=== PATIENT | female | born 1975 ===

== ENCOUNTER 2018-12-04 14:26 | Emergency (ER) | payer SELFPAY ==
[2018-12-04 14:42] VITALS: PULSE 60; O2SAT 100
[2018-12-04 15:32] LABS: SQUAMOUS EPITHIAL 6 /hpf (0-5)
[2018-12-04 15:36] LABS: URINE BILIRUBIN NEGATIVE (NEGATIVE); URINE BLOOD 3+ (NEGATIVE); URINE CLARITY Hazy (Clear); URINE COLOR Yellow (YELLOW); URINE GLUCOSE (UA) NORMAL (Normal); URINE PROTEIN NEGATIVE (NEGATIVE); URINE UROBILINOGEN NORMAL mg/dL (0.2-1.0)
[2018-12-04 15:41] LABS: URINE LEUKOCYTE ESTERASE 1+ Leu/uL (Negative)
[2018-12-04 15:43] LABS: HCG,QUALITATIVE URINE NEGATIVE (NEGATIVE)
[2018-12-04] MEDS ORDERED: Sodium Chloride 0.9% 1,000 ML IV ONE (16:29)
--- NOTE | 2018-12-04 16:33 | C.PDOC ---
History Of Present Illness 43 y/o female c/o heavy vaginal bleeding today, used 5 pads and a tampon and passed some clots. pt reports last period was 20 days ago with just spotting and that periods have been irregular lately. pt last saw director of residence life more than a year ago. pt felt mildly dizzy, no cp or sob. no abdominal pain. pt denies any rough sexual intercouse or use of foreign objects in vagina that might cause bleeding. Time Seen by Provider: 12/04/18 15:16 Chief Complaint (Nursing): Female Genitourinary History Per: Process Laboratory Specialist (Mame pt rep) History/Exam Limitations: language barrier Onset/Duration Of Symptoms: Days (1) Current Symptoms Are (Timing): Still Present Severity: Moderate Quality Of Discomfort: Unable To Describe Associated Symptoms: denies: Nausea, Vomiting Past Medical History Reviewed: Historical Data, Nursing Documentation, Vital Signs Vital Signs: Last Vital Signs Temp 98 F 12/04/18 14:39 Pulse 60 12/04/18 14:39 Resp 20 12/04/18 14:39 BP 163/100 H 12/04/18 14:39 Pulse Ox 100 12/04/18 14:39 Primary Care Provider: Marizol Falk - Medical History PMH: No Chronic Diseases Family History: States: Unknown Family Hx - Social History Hx Alcohol Use: No Hx Substance Use: No - Immunization History Hx Tetanus Toxoid Vaccination: No Hx Influenza Vaccination: No Hx Pneumococcal Vaccination: No Review Of Systems Constitutional: Negative for: Fever, Chills Cardiovascular: Negative for: Chest Pain Gastrointestinal: Negative for: Nausea, Vomiting, Abdominal Pain Genitourinary: Positive for: Hematuria, Vaginal Bleeding. Negative for: Vaginal Discharge, Pelvic Pain Skin: Negative for: Rash Neurological: Negative for: Weakness, Numbness Physical Exam - Physical Exam Appears: Non-toxic, No Acute Distress Skin: Warm, Dry, No Pale Head: Atraumatic, Normacephalic Eye(s): bilateral: Normal Inspection Neck: Supple Chest: No Deformity, No Tenderness Cardiovascular: Rhythm Regular, No Murmur Respiratory: No Decreased Breath Sounds, No Rales, No Rhonchi, No Wheezing Gastrointestinal/Abdominal: Bowel Sounds, Soft, No Tenderness, No Distention, No Guarding, No Rebound ED Course And Treatment - Laboratory Results Result Diagrams: 12/04/18 16:54 Lab Results: Urine Color Yellow (YELLOW) 12/04/18 15:17 Urine Clarity Hazy (Clear) 12/04/18 15:17 Urine pH 5.0 (5.0-8.0) 12/04/18 15:17 Ur Specific [place] 1.021 (1.003-1.030) 12/04/18 15:17 Urine Protein Negative mg/dL (NEGATIVE) 12/04/18 15:17 Urine Glucose (UA) Normal mg/dL (Normal) 12/04/18 15:17 Urine Ketones Negative mg/dL (NEGATIVE) 12/04/18 15:17 Urine Blood 3+ (NEGATIVE) H 12/04/18 15:17 Urine Nitrate Negative (NEGATIVE) 12/04/18 15:17 Urine Bilirubin Negative (NEGATIVE) 12/04/18 15:17 Urine Urobilinogen Normal mg/dL (0.2-1.0) 12/04/18 15:17 Ur Leukocyte Esterase 1+ Bernardo/uL (Negative) H 12/04/18 15:17 Urine WBC (Auto) 5 /hpf (0-5) 12/04/18 15:17 Urine RBC (Auto) 1264 /hpf (0-3) H 12/04/18 15:17 Ur Squamous Epith Cells 6 /hpf (0-5) H 12/04/18 15:17 Urine HCG, Qual Negative (NEGATIVE) 12/04/18 15:17 Urine HCG, Qual Negative (NEGATIVE) 12/04/18 15:17 O2 Sat by Pulse Oximetry: 100 Medical Decision Making Medical Decision Making: with one day heavy vaginal bleeding, not , will check cbc, give fluids 1750 pt with hgb of 14, no longer dizzy after fluids. f/u director of residence life. advised to return to er for persistent heavy bleeding. discussed with pt she may be sunshine=- menopausal given recent irregular periods and needs to see and discuss with director of residence life. Disposition Counseled Patient/Family Regarding: Studies Performed, Diagnosis, Need For Followup - Disposition Referrals: [facility] [Outside] [facility] [Outside] [facility] [Outside] Disposition: HOME/ ROUTINE Disposition Time: 17:57 Condition: GOOD Additional Instructions: Ava un seguimiento de la clnica maana para concertar umberto josé luis con la ifeoma de la lalitha lo antes posible. Regrese a la ministerio de emergencias para un sangrado vaginal abundante empapando umberto toalla sanitaria por hora. Follow up clinic tomorrow to make appointment with women's health as soon as possible. Return to ER for heavy vaginal bleeding soaking one sanitary pad per hour. Instructions: Heavy Periods (DC) Forms: Gen Discharge Inst Serbian, [facility] (Serbian) Print Language: GREEK - Clinical Impression Clinical Impression: DUB (dysfunctional uterine bleeding)
[2018-12-04] MEDS ORDERED: Sodium Chloride 0.9% 1,000 ML ONE (16:49)
[2018-12-04 17:00] LABS: BASO % 0.3 % (0.0-2.0); EOS # 0.1 K/uL (0.0-0.7); EOS % 2.1 % (0.0-4.0); HEMOGLOBIN 14.1 g/dL (11.0-16.0); LYMPH # 1.7 K/uL (1.0-4.3); LYMPH % 23.5 % (20.0-40.0); MEAN CELL VOLUME 90.6 fL (81.0-99.0); MEAN CORPUSCULAR HEMOGLOBIN 30.8 pg (27.0-31.0); MEAN PLATELET VOLUME 7.1 fL (7.2-11.7); MONO # 0.5 K/uL (0.0-0.8); MONO % 7.3 % (0.0-10.0); NEUT # 4.8 K/uL (1.8-7.0); NEUT % 66.8 % (50.0-75.0); NRBC % 0.1 % (0.0-2.0); RBC 4.58 Mil/uL (3.80-5.20); RED CELL DISTRIBUTION WIDTH 12.9 % (11.5-14.5); WHITE BLOOD COUNT 7.1 K/uL (4.8-10.8)
[2018-12-04 17:59] VITALS: BP 134/79; RESP 18; TEMP 98
== END 2018-12-04 18:25 | disposition home or self-care (01) ==
LOC: C.ER 14:26
DX: N93.8 Other specified abnormal uterine and vaginal bleeding (principal)
CPT/HCPCS: 81001; 84703; 85025; 96360; 99285; J7030